=== PATIENT | female | born 1990 | race Caucasian/White ===

== ENCOUNTER 2025-05-27 21:28 | Emergency (ER) | payer OTHER ==
[2025-05-27 22:08] LABS: PLATELET COUNT,PLT 176.0 K/uL (130-375); RED BLOOD CELL COUNT 3.81 M/uL (3.77-5.24); WHITE BLOOD CELL COUNT,WBC 9.9 K/uL (3.2-11.0)
== END 2025-05-27 23:58 | disposition home or self-care (01) ==
LOC: JP.ED 21:28
DX: O03.9 Complete or unspecified spontaneous abortion without complication (principal)
CPT/HCPCS: 36415; 76801; 84702; 85027; 99283; 99284